=== PATIENT | male | born 1960 | race Two or more races ===

== ENCOUNTER 2016-12-31 21:47 | Emergency (ER) | payer MEDICAID ==
[~2016-12-31] VITALS: Ht 172.7 cm; Wt 95.3 kg
[2016-12-31] MEDS ORDERED: NORVASC10 MG ORAL (22:01)
[2016-12-31] MEDS ORDERED: Norco 5mg/325mg tab ORAL ONE (22:15)
--- NOTE | 2016-12-31 22:16 | Emergency Room Report ---
History of Present Illness General Chief Complaint: Lower Back Pain or Injury Source: Patient Present Illness HPI This is a 56-year-old who is right-hand dominant. 2 days ago, he was can of metal pole and he slipped on the wet floor. He landed on his buttock. He said that his left thumb was twisted outwardly. Now with swelling but better on the thumb. Main reason he is here is lower back pain with pain radiating down his left leg. Worse with walking and sitting. Better with rest. Pain is 7/10. No incontinence of bowel or urine. No fever or chills. No other trauma. No loss of consciousness. Allergies: Coded Allergies: No Known Allergies (Unverified , 12/31/16) Patient History Past Medical History: see triage record, old chart reviewed Past Surgical History: other Pertinent Family History: none Social History: Denies: smoking Immunizations: other Reviewed Nursing Documentation: PMH: Agreed, PSxH: Agreed Nursing Documentation-PMH Hx Hypertension: Yes Review of Systems Eye: Denies: blurred vision, eye pain ENT: Denies: ear pain, nose congestion, throat swelling Respiratory: Denies: cough, shortness of breath Cardiovascular: Denies: chest pain, palpitations Gastrointestinal: Denies: abdominal pain, diarrhea, nausea, vomiting Musculoskeletal: Reports: back pain, joint pain Skin: Denies: rash Neurological: Denies: headache, numbness Endocrine: Denies: increased thirst, increased urine Hematologic/Lymphatic: Denies: easy bruising All Other Systems: negative except mentioned in HPI Physical Exam Vital Signs Date Time Temp Pulse Resp B/P Pulse Ox O2 Delivery O2 Flow Rate FiO2 12/31/16 21:51 97.5 98 16 137/96 97 Room Air vitals normal. Sp02 EP Interpretation: reviewed, normal General Appearance: well appearing, no apparent distress, alert Head: normocephalic, atraumatic Eyes: bilateral eye EOMI, bilateral eye PERRL ENT: hearing grossly normal, normal pharynx Neck: full range of motion, supple, no meningismus Respiratory: chest non-tender, lungs clear, normal breath sounds Cardiovascular #1: regular rate, rhythm, no murmur Gastrointestinal: normal bowel sounds, non tender, no mass, no organomegaly, no bruit, non-distended Musculoskeletal: gait/station normal, normal range of motion, other - back: TTP over left lower paraspinous muscle of lumbar spine. no step off. no anesthesia. left thumb: TTP over DIP. NVI. Tendon intact. Psychiatric: mood/affect normal Skin: warm/dry Procedures Splinting Splinting : Consent: Verbal Pre-Made Type: metal Splint: Finger Pre-Proc Neuro Vasc Exam: normal Post-Proc Neuro Vasc Exam: normal Patient Tolerated: Well Complications: None Medical Decision Making Diagnostic Impression: Primary Impression: Sacral fracture, closed Qualified Codes: S32.10XA - Unspecified fracture of sacrum, initial encounter for closed fracture Additional Impressions: Spinal stenosis of lumbosacral region Left thumb sprain Qualified Codes: S63.602A - Unspecified sprain of left thumb, initial encounter Medication refill ER Course Patient present with a fall and has a nondisplaced sacral fracture. This was 2 days ago. No deformity. No neurological deficit. We'll discharge home with reassurance. He asked for refill on his blood pressure medication. Other X-Ray Diagnostic Results Other X-Ray Diagnostic Results : X-Ray Ordered: left thumb xrays Date: Jan 01, 2017 Time: 00:14 EP Interpretation: Yes Findings: no fractures, no dislocation, no soft tissue swelling Number of Views: 3 CT/MRI/US Diagnostic Results CT/MRI/US Diagnostic Results : Imaging Test Ordered: ct lumbar spine Impression Ready by radiologist. Nondisplaced frx of sacrum. Spinal stenosis of L5/S1 Last Vital Signs Date Time Temp Pulse Resp B/P Pulse Ox O2 Delivery O2 Flow Rate FiO2 12/31/16 21:51 97.5 98 16 137/96 97 Room Air Status: improved Disposition: HOME, SELF-CARE Condition: Stable Scripts Hydrochlorothiazide* (HYDROCHLOROTHIAZIDE*) 25 Mg Tablet 12.5 MG ORAL DAILY, #30 TAB Prov: VÍCTOR AMBRIZ M.D. 01/01/17 Amlodipine Besylate (Norvasc) 10 Mg Tablet 10 MG ORAL DAILY, #30 TAB Prov: VÍCTOR AMBRIZ M.D. 01/01/17 Hydrocodone/Acetaminophen 5-325* (HYDROCODONE/ACETAMINOPHEN 5-325*) 1 Each Tablet 1 TAB ORAL Q6H Y for For Pain, #30 TAB 0 Refills Prov: VÍCTOR AMBRIZ M.D. 01/01/17 Additional Instructions: Followup with your DrAyaan in 2-3 days. No heavy lifting. Return if symptom worsen. VÍCTOR AMBRIZ M.D. Dec 31, 2016 22:16
[2017-01-01 00:13] VITALS: BP 134/94
[2017-01-01] MEDS ORDERED: HYDROCHLOROTHIA25 MG ORAL (00:16)
[2017-01-01] MEDS ORDERED: NORVASC10 MG ORAL (00:16)
[2017-01-01] MEDS ORDERED: HYDROCODON-ACE1 EA15 ORAL (00:16)
[2017-01-01 00:22] VITALS: BP 134/94
--- NOTE | 2017-01-02 10:52 | Diagnostic Imaging Report ---
History: Pain status post fall. Technique: Frontal, lateral, and oblique views of the left thumb are provided. Comparison: No prior study is available for comparison. Findings: Overall bony mineralization is within normal limits. There is no evidence of acute fracture or dislocation. No significant erosive or arthritic change is noted. The soft tissues appear grossly normal. No significant joint effusion is noted. Impression: No evidence of acute fracture or dislocation.
--- NOTE | 2017-01-02 10:52 | Diagnostic Imaging Report ---
INDICATION: Pain status post fall. TECHNIQUE: Helical CT images of the lumbar spine were obtained without administration of intravenous contrast. Multiplanar reformations in the coronal and sagittal plane are provided. COMPARISON: None. FINDINGS: Mild loss of height of L5 vertebral body superior endplate may represent chronic compression deformity. There is apparent cortical step-off involving the superior endplate of S4 vertebral body anteriorly suspicious for an acute displaced fracture. No CT evidence of acute lumbar spine fracture otherwise noted. Remaining vertebral body heights are preserved. There is moderate disc space height loss at L5-S1 with associated endplate sclerotic changes. The sagittal alignment is maintained. Paravertebral musculature and prevertebral soft tissues appear unremarkable. Small probable cyst in the interpolar left kidney medially. Disc bulge and facet arthropathy at L4-L5 result in moderate right and mild left neural foraminal narrowing. There is no significant spinal canal stenosis. Disc bulge and facet arthropathy at L5-S1 result in moderate bilateral neural foraminal stenosis without significant spinal canal narrowing. There is no significant spinal canal or neural foraminal stenosis at the remaining lumbar vertebral body levels. IMPRESSION: 1. Suspected subtle mildly displaced acute fracture involving the anterior S4 vertebral body. 2. Mild probable chronic compression deformity of superior endplate of L5 vertebral body. 3. Mild degenerative changes at L4-5 and L5-S1, as described.
== END 2017-01-01 00:23 | disposition home or self-care (01) ==
LOC: EMR 22:10
DX: S32.19XA Other fracture of sacrum, initial encounter for closed fracture (principal); S33.9XXA Sprain of unspecified parts of lumbar spine and pelvis, initial encounter; W01.0XXA Fall on same level from slipping, tripping and stumbling without subsequent striking against object, initial encounter; Y92.89 Other specified places as the place of occurrence of the external cause; M48.07 Spinal stenosis, lumbosacral region; I10 Essential (primary) hypertension
CPT/HCPCS: 72131; 99284

== ENCOUNTER 2017-02-21 23:10 | Emergency (ER) | payer MEDICAID, OTHER ==
[~2017-02-21] VITALS: Ht 172.7 cm; Wt 95.3 kg
[~2017-02-21 23:10] MED LIST: HYDROCHLOROTHIA25 MG ORAL; HYDROCODON-ACE1 EA15 ORAL; NORVASC10 MG ORAL
[2017-02-22] MEDS ORDERED: AUGMENTIN 875-1 EAC1 ORAL (00:21)
[2017-02-22] MEDS ORDERED: IBUPROFEN600 MG ORAL (00:21)
[2017-02-22] MEDS ORDERED: Augmentin 875mg Tab ORAL ONE (00:30)
[2017-02-22] MEDS ORDERED: Ketorolac 60mg Inj IM ONE (00:30)
[2017-02-22 00:32] VITALS: BP 132/89
--- NOTE | 2017-02-22 20:07 | Emergency Room Report ---
History of Present Illness General Chief Complaint: Pain Source: Patient Present Illness HPI Patient is a 56-year-old male who presented after increased right hand pain. The patient had a recent laceration repair to his right small finger. Patient is right-hand dominant. 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 Patient having injured his finger approximately one week ago. Patient had sutures placed and feels like he may have some infection to his hand. Patient not been taking antibiotics. The patient had no complaints of fever. Patient gradual onset of symptoms over the past 2 days. Injury occurred to the patient's small finger. Allergies: Coded Allergies: No Known Allergies (Unverified , 12/31/16) Patient History Past Medical History: see triage record Reviewed Nursing Documentation: PMH: Agreed, PSxH: Agreed Nursing Documentation-PMH Hx Hypertension: Yes Review of Systems All Other Systems: negative except mentioned in HPI Physical Exam Vital Signs Date Time Temp Pulse Resp B/P Pulse Ox O2 Delivery O2 Flow Rate FiO2 02/21/17 23:35 97.5 99 18 132/89 96 Room Air General Appearance: well appearing, no apparent distress, alert, GCS 15 Head: normocephalic, atraumatic ENT: hearing grossly normal, normal voice Neck: full range of motion, supple Respiratory: no respiratory distress, speaking full sentences Cardiovascular #1: normal inspection Gastrointestinal: normal inspection Musculoskeletal: no calf tenderness, swelling Neurologic: normal gait Psychiatric: mood/affect normal Skin: other - erythema to laceration and distal phalanx, no discharge partially healed, Medical Decision Making Diagnostic Impression: Primary Impression: Infected laceration ER Course Patient presented for wound check. Differential diagnosis included was not limited to infected wound, nonhealed wound, neuroma, healed wound. The patient would appear to be somewhat infected. Sutures removed there is no purulent drainage after sutures removed. The patient had intact perfusion. It does not appear to be any abscess. Patient started on oral antibiotics. He was given prescriptions for antibiotics. Patient was advised to recheck in 2 days for monitoring of infection. Patient was given prescription for Augmentin. Last Vital Signs Date Time Temp Pulse Resp B/P Pulse Ox O2 Delivery O2 Flow Rate FiO2 02/22/17 00:32 97.5 96 18 132/89 96 Room Air Status: improved Disposition: HOME, SELF-CARE Condition: Stable Scripts Ibuprofen* (MOTRIN*) 600 Mg Tablet 600 MG ORAL Q8H Y for For Pain, #30 TAB 0 Refills Prov: Arsenio Stokes 02/22/17 Amoxicillin/Potassium Clav 875-125* (AUGMENTIN 875-125 TABLET*) 1 Each Tablet 1 TAB ORAL TWICE A DAY, #14 TAB Prov: Arsenio Stokes 02/22/17 Referrals: NOT CHOSEN IPA/,REFERRING (PCP) Patient Instructions: Wound Infection, [id number] Arsenio Stokes Feb 22, 2017 20:07
== END 2017-02-22 00:35 | disposition home or self-care (01) ==
LOC: EMR 02-22 00:15
DX: S61.219D Laceration without foreign body of unspecified finger without damage to nail, subsequent encounter (principal); L08.9 Local infection of the skin and subcutaneous tissue, unspecified; X58.XXXD Exposure to other specified factors, subsequent encounter; Y92.9 Unspecified place or not applicable; Z48.02 Encounter for removal of sutures; I10 Essential (primary) hypertension
CPT/HCPCS: 96372; 99284

== ENCOUNTER 2017-03-12 21:54 | Emergency (ER) | payer OTHER ==
[~2017-03-12] VITALS: Ht 172.7 cm; Wt 95.3 kg
[~2017-03-12 21:54] MED LIST changes: +AUGMENTIN 875-1 EAC1 ORAL; +IBUPROFEN600 MG ORAL
[2017-03-12 22:00] VITALS: BP 150/104
[2017-03-12] MEDS ORDERED: Norco 5mg/325mg tab ORAL ONE (22:15)
[2017-03-12] MEDS ORDERED: CYCLOBENZAPRINE10 MG ORAL (22:18)
[2017-03-12] MEDS ORDERED: HYDROCODON-ACE1 EA15 ORAL (22:18)
--- NOTE | 2017-03-12 22:19 | Emergency Room Report ---
History of Present Illness General Chief Complaint: Lower Back Pain or Injury Source: Patient Present Illness HPI This is a 56-year-old male with a history of back pain. He presents with chief complaint of back pain since he was moving furniture yesterday. Denies any fever or chills. Out of his medication. [id number] medication not helping. Pain is localized the lower back. No incontinence of bowel or urine. No anesthesia. Allergies: Coded Allergies: No Known Allergies (Unverified , 12/31/16) Patient History Past Medical History: see triage record, old chart reviewed, HTN Past Surgical History: none Pertinent Family History: none Social History: Reports: smoking Immunizations: other Reviewed Nursing Documentation: PMH: Agreed, PSxH: Agreed Nursing Documentation-PMH Hx Hypertension: Yes Review of Systems Eye: Denies: blurred vision, eye pain ENT: Denies: ear pain, nose congestion, throat swelling Respiratory: Denies: cough, shortness of breath Cardiovascular: Denies: chest pain, palpitations Gastrointestinal: Denies: abdominal pain, diarrhea, nausea, vomiting Musculoskeletal: Reports: back pain, Denies: joint pain Skin: Denies: rash Neurological: Denies: headache, numbness Endocrine: Denies: increased thirst, increased urine Hematologic/Lymphatic: Denies: easy bruising All Other Systems: negative except mentioned in HPI Physical Exam Vital Signs Date Time Temp Pulse Resp B/P Pulse Ox O2 Delivery O2 Flow Rate FiO2 03/12/17 21:57 97.5 80 17 150/104 94 Room Air vitals with hypertension Sp02 EP Interpretation: reviewed, normal General Appearance: well appearing, no apparent distress, alert Head: normocephalic, atraumatic Eyes: bilateral eye EOMI, bilateral eye PERRL ENT: hearing grossly normal, normal pharynx Neck: full range of motion, supple, no meningismus Respiratory: chest non-tender, lungs clear, normal breath sounds Cardiovascular #1: regular rate, rhythm, no murmur Gastrointestinal: normal bowel sounds, non tender, no mass, no organomegaly, no bruit, non-distended Musculoskeletal: back normal - Tenderness to the lower back mostly right paraspinous., gait/station normal, normal range of motion Neurologic: alert, oriented x3 Psychiatric: mood/affect normal Skin: warm/dry Medical Decision Making Diagnostic Impression: Primary Impression: Low back pain Qualified Codes: M54.5 - Low back pain Additional Impression: Hypertension Qualified Codes: I10 - Essential (primary) hypertension ER Course Patient presents with exacerbation of chronic low back pain. No evidence of cauda equina syndrome, spinal epidural abscess, or neoplastic process. We'll discharge home. Last Vital Signs Date Time Temp Pulse Resp B/P Pulse Ox O2 Delivery O2 Flow Rate FiO2 03/12/17 21:57 97.5 80 17 150/104 94 Room Air Status: improved Disposition: HOME, SELF-CARE Condition: Stable Scripts Cyclobenzaprine Hcl* (FLEXERIL*) 10 Mg Tablet 10 MG ORAL TID Y for Muscle Spasm, #30 TAB Prov: VÍCTOR AMBRIZ M.D. 03/12/17 Hydrocodone/Acetaminophen 5-325* (HYDROCODONE/ACETAMINOPHEN 5-325*) 1 Each Tablet 1 TAB ORAL Q6H Y for For Pain, #15 TAB 0 Refills Prov: VÍCTOR AMBRIZ M.D. 03/12/17 Referrals: NOT CHOSEN IPA/,REFERRING (PCP) Patient Instructions: Back Pain, Adult Additional Instructions: Followup with your Dr. within 7 days. Stop smoking. Take your blood pressure medication. Return if symptom worsen. VÍCTOR AMBRIZ M.D. Mar 12, 2017 22:19
[2017-03-12 22:25] VITALS: BP 150/104
== END 2017-03-12 22:25 | disposition home or self-care (01) ==
LOC: EMR 22:14
DX: M54.5 Low back pain (principal); I10 Essential (primary) hypertension; G89.29 Other chronic pain; F17.200 Nicotine dependence, unspecified, uncomplicated
CPT/HCPCS: 99284

== ENCOUNTER 2017-05-30 23:31 | Emergency (ER) | payer OTHER ==
[~2017-05-30] VITALS: Ht 172.7 cm; Wt 95.3 kg
[~2017-05-30 23:31] MED LIST changes: +CYCLOBENZAPRINE10 MG ORAL
[2017-05-30 23:43] VITALS: BP 109/73
[2017-05-30] MEDS ORDERED: IBUPROFEN600 MG ORAL (23:46)
[2017-05-30] MEDS ORDERED: ROBAXIN-750750 MG PO (23:46)
--- NOTE | 2017-05-30 23:59 | Emergency Room Report ---
History of Present Illness General Chief Complaint: Back Injury Source: Patient Present Illness HPI 57YOM [employer] patient walked in with strain to lower back after placing sheetrock at home earlier. Pain worse with movement, bending over Atraumatic No lower extremity weakness No urinary incontinence No history of malignancy Here previously for back pain Doesnt have Rx or OTC meds at home Allergies: Coded Allergies: No Known Allergies (Unverified , 05/30/17) Patient History Past Medical History: other - LBP Past Surgical History: none Pertinent Family History: none Social History: Denies: alcohol use, drug use, smoking Immunizations: UTD Reviewed Nursing Documentation: PMH: Agreed, PSxH: Agreed Nursing Documentation-PMH Past Medical History: No History, Except For Hx Hypertension: Yes Review of Systems All Other Systems: negative except mentioned in HPI Physical Exam Vital Signs Date Time Temp Pulse Resp B/P Pulse Ox O2 Delivery O2 Flow Rate FiO2 05/30/17 23:35 97.9 92 16 109/73 97 Room Air Sp02 EP Interpretation: reviewed, normal General Appearance: normal inspection, well appearing, no apparent distress, alert, GCS 15, non-toxic Head: atraumatic Eyes: bilateral eye EOMI, bilateral eye PERRL ENT: normal ENT inspection, hearing grossly normal, normal voice Neck: normal inspection, full range of motion, supple, no bony tend Respiratory: normal inspection, lungs clear, normal breath sounds, no respiratory distress, no retraction, no wheezing Cardiovascular #1: regular rate, rhythm, no edema Gastrointestinal: normal inspection, normal bowel sounds, non tender, soft, no guarding, no hernia Genitourinary: no CVA tenderness Musculoskeletal: normal inspection, back normal, normal range of motion, Jerica' s Sign negative, other - Mild bilateral paravertebral ttp Neurologic: normal inspection, alert, oriented x3, responsive, 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 Afebrile No focal neuro deficits A: low suspicion for cord compression given well appearance, bilateral paravertebral ttp, no focal neuro deficits, absence of midline ttp/masses and pain worse with movement with known exacerbating activity Robaxin, Ibuprofen given in ED with Rx for both Advised PMD followup DC home Last Vital Signs Date Time Temp Pulse Resp B/P Pulse Ox O2 Delivery O2 Flow Rate FiO2 05/30/17 23:43 97.9 95 16 109/73 97 Room Air Status: improved Disposition: HOME, SELF-CARE Condition: Improved Scripts Methocarbamol* (ROBAXIN-750*) 750 Mg Tablet 750 MG PO TID for 7 Days, #30 TAB 0 Refills Prov: JESSIKA PAYAN M.D. 05/30/17 Ibuprofen* (MOTRIN*) 600 Mg Tablet 600 MG ORAL THREE TIMES A DAY for back pain for 7 Days, #30 TAB 0 Refills Prov: JESSIKA PAYAN M.D. 05/30/17 Referrals: NOT CHOSEN IPA/,REFERRING (PCP) Patient Instructions: Back Pain, Adult JESSIKA PAYAN M.D. May 30, 2017 23:59
[2017-05-31] MEDS ORDERED: Methocarbamol 750mg tab ORAL ONE
[2017-05-31 00:17] VITALS: BP 109/73
== END 2017-05-31 00:18 | disposition home or self-care (01) ==
LOC: EMR 23:47
DX: S39.012A Strain of muscle, fascia and tendon of lower back, initial encounter (principal); X50.9XXA Other and unspecified overexertion or strenuous movements or postures, initial encounter; Y92.019 Unspecified place in single-family (private) house as the place of occurrence of the external cause; I10 Essential (primary) hypertension
CPT/HCPCS: 99284

== ENCOUNTER 2017-06-21 19:53 | Emergency (ER) | payer OTHER ==
[~2017-06-21] VITALS: Ht 172.7 cm; Wt 95.3 kg
[~2017-06-21 19:53] MED LIST changes: +ROBAXIN-750750 MG PO
--- NOTE | 2017-06-21 20:55 | Emergency Room Report ---
History of Present Illness General Chief Complaint: Abdominal Pain Source: Patient, Medical Record Present Illness HPI Patient is a 57-year-old male who presented after increased abdominal pain as well as bloating. Patient present increased crampy abdominal pain which did not radiate. Patient states has been having intermittent bouts of diarrhea which was watery in nature. This is associated with some abdominal discomfort. He denied having a more 3 bowel movements a day to any bloody stools or black stools. Diarrhea is worse after eating. He denied recent travel fever or antibiotic use . Allergies: Coded Allergies: No Known Allergies (Unverified , 05/30/17) Patient History Past Medical History: see triage record Reviewed Nursing Documentation: PMH: Agreed, PSxH: Agreed Nursing Documentation-PMH Hx Hypertension: Yes Review of Systems All Other Systems: negative except mentioned in HPI Physical Exam Vital Signs Date Time Temp Pulse Resp B/P Pulse Ox O2 Delivery O2 Flow Rate FiO2 06/21/17 20:21 98.2 77 14 122/84 95 Room Air General Appearance: well appearing, no apparent distress, alert, GCS 15 Head: normocephalic, atraumatic ENT: hearing grossly normal, normal voice Neck: full range of motion, supple Respiratory: no respiratory distress, speaking full sentences Cardiovascular #1: normal inspection, regular rate, rhythm Gastrointestinal: normal inspection, normal bowel sounds, non tender, soft, no mass Musculoskeletal: no calf tenderness Neurologic: normal gait Psychiatric: mood/affect normal Skin: no rash Medical Decision Making Diagnostic Impression: Primary Impression: Abdominal pain ER Course Patient presented for abdominal pain. Differential diagnoses included ischemic bowel, appendicitis, perforated viscus, abdominal aortic aneurysm, inferior myocardial infarction, viral gastroenteritis Patient's benign exam and does not appear to require any further imaging or laboratory testing at this time. The patient presented a gastroenteritis. This does not appear to be require laboratory testing this time. Patient given GI cocktail. The patient is advised to follow up with primary care doctor in 1 -2 days. Patient is advised to return if any worsening condition or if any changes in status that are concerning. Last Vital Signs Date Time Temp Pulse Resp B/P Pulse Ox O2 Delivery O2 Flow Rate FiO2 06/21/17 20:21 98.2 77 14 122/84 95 Room Air Status: improved Disposition: HOME, SELF-CARE Condition: Stable Scripts Loperamide Hcl (LOPERAMIDE) 2 Mg Capsule 2 MG PO EVERY 12 HOURS, #20 CAP Prov: Arsenio Stokes 06/21/17 Dicyclomine Hcl* (BENTYL*) 10 Mg Capsule 10 MG ORAL FOUR TIMES A DAY, #30 CAP Prov: Arsenio Stokes 06/21/17 Arsenio Stokes Jun 21, 2017 20:55
[2017-06-21] MEDS ORDERED: BENTYL10 MG ORAL (20:57)
[2017-06-21] MEDS ORDERED: LOPERAMIDE2 MG PO (20:57)
[2017-06-21] MEDS ORDERED: Dicyclomine HCl 10mg/5ml oral soln ORAL ONE (21:00)
[2017-06-21] MEDS ORDERED: Lidocaine 2% Visc 15ml soln ORAL ONE (21:00)
[2017-06-21 21:11] VITALS: BP 128/88
[2017-06-21 21:12] VITALS: BP 128/88
== END 2017-06-21 21:15 | disposition home or self-care (01) ==
LOC: EMR 21:00
DX: R10.9 Unspecified abdominal pain (principal); R19.7 Diarrhea, unspecified; R14.0 Abdominal distension (gaseous); I10 Essential (primary) hypertension
CPT/HCPCS: 99284

== ENCOUNTER 2017-07-09 20:59 | Emergency (ER) | payer OTHER ==
[~2017-07-09] VITALS: Ht 172.7 cm; Wt 95.3 kg
[~2017-07-09 20:59] MED LIST changes: +BENTYL10 MG ORAL; +LOPERAMIDE2 MG PO
[2017-07-09 21:20] VITALS: BP 112/75
--- NOTE | 2017-07-09 21:28 | Emergency Room Report ---
History of Present Illness General Chief Complaint: General Complaint Source: Patient, Medical Record Present Illness HPI Patient presents with complaints of pain to upper thigh bilaterally He complains of anterior pain and cramping sensation Started yesterday Denies any calf pain denies any swelling Denies any chest pain or shortness of breath Patient is on a combination amlodipine/hydrochlorothiazide medication This is not a new medication Denies any fevers or chills denies any dysuria frequency denies any fall or trauma Allergies: Coded Allergies: No Known Allergies (Unverified , 05/30/17) Patient History Past Medical History: see triage record Pertinent Family History: none Reviewed Nursing Documentation: PMH: Agreed, PSxH: Agreed Nursing Documentation-PMH Hx Hypertension: Yes Review of Systems All Other Systems: negative except mentioned in HPI Physical Exam Vital Signs Date Time Temp Pulse Resp B/P Pulse Ox O2 Delivery O2 Flow Rate FiO2 07/09/17 21:08 98.1 84 18 112/75 93 Room Air Sp02 EP Interpretation: reviewed, normal General Appearance: well appearing, no apparent distress Head: normocephalic, atraumatic Eyes: bilateral eye EOMI, bilateral eye PERRL ENT: hearing grossly normal, normal pharynx, TMs + canals normal, uvula midline Neck: full range of motion, supple, no meningismus, no bony tend Respiratory: lungs clear, normal breath sounds, no rhonchi, no respiratory distress, no retraction, no accessory muscle use Cardiovascular #1: normal peripheral pulses, regular rate, rhythm, no edema, no gallop, no JVD, no murmur Gastrointestinal: normal bowel sounds, non tender, soft, no mass, no organomegaly, non-distended, no guarding, no hernia, no pulsatile mass, no rebound Genitourinary: no CVA tenderness Musculoskeletal: normal inspection Neurologic: oriented x3, responsive, laborer wharf III-XII nml as tested, motor strength/ tone normal, sensory intact Psychiatric: mood/affect normal Skin: normal color, no rash, warm/dry, palpation normal Lymphatic: normal inspection, no adenopathy Medical Decision Making Diagnostic Impression: Primary Impression: Muscle cramping ER Course Given the patient's history of diuretic use Electrolyte abnormality was considered the patient had chemistry obtained Potassium is normal at 3.5 patient remained fairly benign cures reveals multiple medications including Adderall, and opiate medications by different provider Patient is encouraged however to followup with specific provider Labs Test 07/09/17 21:30 Sodium Level 138 mEQ/L (135-145) Potassium Level 3.5 mEQ/L (3.4-4.9) Chloride Level 97 mEQ/L (98-107) Carbon Dioxide Level 26 mEQ/L (20-30) Anion Gap 15 (5-15) Blood Urea Nitrogen 25 mg/dL (7-23) Creatinine 1.1 mg/dL (0.7-1.2) Estimat Glomerular Filtration Rate > 60 mL/min (>60) Glucose Level 102 mg/dL (74-106) Calcium Level 9.6 mg/dL (8.6-10.2) Last Vital Signs Date Time Temp Pulse Resp B/P Pulse Ox O2 Delivery O2 Flow Rate FiO2 07/09/17 21:20 98.1 84 18 112/75 93 Room Air Status: improved Disposition: HOME, SELF-CARE Condition: Stable Additional Instructions: Patient is provided with the discharge instructions notified to follow up with primary doctor in the next 2-3 days otherwise return to the er with any worsening symptoms. Please note that this report is being documented using [employer] technology. This can lead to erroneous entry secondary to incorrect interpretation by the dictating instrument. LUCILA NAZARIO D.O. Jul 09, 2017 21:28
[2017-07-09 22:19] LABS: ANION GAP 15 (5-15); CALCIUM 9.6 mg/dL (8.6-10.2); CARBON DIOXIDE 26 mEQ/L (20-30); CHLORIDE 97 mEQ/L (98-107); CREATININE 1.1 mg/dL (0.7-1.2); GLOMERULAR FILTRATION RATE > 60 mL/min (>60); HEMOLYSIS 17; POTASSIUM 3.5 mEQ/L (3.4-4.9); SODIUM 138 mEQ/L (135-145)
[2017-07-09 22:46] VITALS: BP 112/75
== END 2017-07-09 22:47 | disposition home or self-care (01) ==
LOC: EMR 21:35
DX: R25.2 Cramp and spasm (principal); M79.651 Pain in right thigh; I10 Essential (primary) hypertension
CPT/HCPCS: 36415; 80048; 99282